=== PATIENT | female | born 1975 | race Caucasian/White ===

== ENCOUNTER → 2021-01-09 10:22 | Outpatient (CLI) | payer OTHER, SELFPAY ==
[2021-01-09] MEDS: COVID-19 VACC #1, MRNA(MOD) 100 MCG/0.5 ML VIAL IM (10:32)
== END ==
PROVIDERS: Visit Provider Internal Medicine
DX: Z23 Encounter for immunization (principal)
CPT/HCPCS: 0011A; 91301

== ENCOUNTER → 2021-02-12 10:32 | Outpatient (CLI) | payer OTHER, SELFPAY ==
[2021-02-12] MEDS: COVID-19 VACC #2, MRNA(MOD) 100 MCG/0.5 ML VIAL IM (10:40)
== END ==
PROVIDERS: Visit Provider Internal Medicine
DX: Z23 Encounter for immunization (principal)
CPT/HCPCS: 0012A; 91301

== ENCOUNTER → 2021-07-02 14:21 | Outpatient (CLI) | payer OTHER, SELFPAY ==
[2021-07-02 16:03] LABS: BUN Creatinine Ratio 15.3 (6-22); Blood Urea Nitrogen 9 mg/dL (7-17); Calcium 9.6 mg/dL (8.4-10.2); Carbon Dioxide 27 mmol/L (22-32); Chloride 103 mmol/L (98-107); Cholesterol 179 mg/dL (140-199); Estimated Glomerular Filt Rate > 60.0 mL/min (>60); Glucose 77 mg/dL (70-100); HDL Cholesterol 57 mg/dL (40-60); HEMOLYSIS 31 (0-50); LDL Cholesterol Calculated 88 mg/dL (<100); Potassium 4.7 mmol/L (3.4-5.1); Sodium 139 mmol/L (137-145); Triglycerides 169 mg/dL (35-150)
[2021-07-02 16:13] LABS: Vitamin D 25 Hydroxy (D3) 88.6 ng/mL (30.0-100.0)
== END ==
PROVIDERS: PCP Student in an Organized Health Care Education/Training Program; Referring Provider Student in an Organized Health Care Education/Training Program; Visit Provider Student in an Organized Health Care Education/Training Program
DX: E11.9 Type 2 diabetes mellitus without complications (principal); E55.9 Vitamin D deficiency, unspecified
CPT/HCPCS: 36415; 80048; 80061; 82306; 83036

== ENCOUNTER 2022-06-17 08:19 | Emergency (ER) | payer OTHER, SELFPAY ==
[2022-06-17 08:37] VITALS: BP 144/96; PULSE 68; RESP 18; TEMP 36.8; O2SAT 100; BMI 34.9
--- NOTE | 2022-06-17 08:38 | DI.US.S_ITS ---
PROCEDURE: US PERIPH VENOUS LOW EXTREM LT INDICATIONS: POSTERIOR KNEE PAIN TECHNIQUE: Real-time imaging, as well as color and pulse Doppler interrogation, were performed of the lower extremity deep veins from the inguinal ligament to the popliteal fossa. COMPARISON: None. FINDINGS: The common femoral, femoral and popliteal veins are normally compressible, and free of intraluminal thrombus. Color and pulse Doppler demonstrate normal phasic intraluminal flow. There is normal augmentation response to distal compression maneuver. IMPRESSION: No evidence of DVT in visualized left lower extremity veins. No abnormality is seen in popliteal fossa. Dictated by: Guido Jones M.D. on 06/17/2022 at 9:08 Approved by: Guido Jones M.D. on 06/17/2022 at 9:09
--- NOTE | 2022-06-17 09:09 | ED.LOWEXIN ---
HPI - Extremity Injury (Lower) General Chief Complaint: Extremity Injury, Lower Stated Complaint: Poss blood clot lt leg- has DVT- ref by Time Seen by Provider: 06/17/22 08:51 Source: patient Mode of arrival: Ambulatory History of Present Illness HPI Narrative: 47-year-old woman with a history of hypertension, type 2 diabetes with recent significant weight loss then ability to decrease and discontinue some of her medications. She has a history of a DVT in the distant past it sounds like it was unprovoked and she was on anticoagulants for a very brief period of time. With her 2 she was on Lovenox simply because of that history of DVT. It does not sound like she has had a coagulation workup. Over the last 10 days she complains of increasing aching pain in her left leg in the distal thigh knee and proximal posterior calf. Last night it was achy and painful enough that she was unable to get sleep. She notes that this is exactly what her DVT felt like previously. She describes no fevers, cough, chills, chest pain, palpitations, dyspnea. She has had no obvious injuries to the left leg and no other explanation for the pain. Related Data Home Medications Medication Instructions Recorded Confirmed aspirin 81 mg tablet,delayed 81 mg PO DAILY 06/02/21 03/25/22 release (Adult Low Dose Aspirin) cholecalciferol (vitamin D3) 25 25 mcg PO DAILY 07/05/21 03/25/22 mcg (1,000 unit) capsule Previous Rx's Medication Instructions Recorded metformin 500 mg tablet 500 mg PO .BIDCC #180 tabs 07/05/21 naltrexone 50 mg tablet 50 mg PO DAILY #90 tabs 01/07/22 metoprolol succinate 50 mg 50 mg PO DAILY #90 tabs 02/03/22 tablet,extended release 24 hr azelastine 0.05 % eye drops 1 drp EYE-BOTH BID #6 mL 03/17/22 azelastine 137 mcg (0.1 %) nasal 1 spray intranasal BID #30 mL 03/17/22 spray aerosol ipratropium bromide 42 mcg (0.06 2 spray intranasal QID #15 mL 03/25/22 %) nasal spray bupropion HCl 150 mg 24 hr tablet, 150 mg PO QAM #90 tabs 06/05/22 extended release oxycodone-acetaminophen 5 mg-325 1 tab PO Q6H PRN pain #14 tabs 06/17/22 mg tablet Allergies Allergy/AdvReac Type Severity Reaction Status Date / Time Sulfa (Sulfonamide Allergy Severe Throat Verified 06/17/22 08:37 Antibiotics) closes lisinopril AdvReac Intermediate Hot ankles Verified 06/17/22 08:37 Review of Systems Review of Systems Narrative: Remainder of complete review of systems is otherwise unremarkable except for that included in the HPI. Patient History Medical History Deep vein thrombosis Foot pain Hypertension Vitamin D deficiency Surgical History Anesthesia Family History Father Hypertension Hyperlipidemia Mental health problem Grandfather Alzheimer's disease Grandmother COVID-19 Grandfather Brain aneurysm Grandmother Cancer Social History Smoking Status: Never smoker Smoking Status: Never smoker Substance Use Type: marijuana Exam Initial Vital Signs Initial Vital Signs: Vital Signs Temperature 98.2 F 06/17/22 08:37 Pulse Rate 68 06/17/22 08:37 Respiratory Rate 18 06/17/22 08:37 Blood Pressure 144/96 H 06/17/22 08:37 Pulse Oximetry 100 06/17/22 08:37 Oxygen Delivery Method 06/17/22 08:37 General: Healthy appearing, in no acute distress. Able to give a complete and coherent history. Well-nourished well-developed HEENT: Moist mucous membranes, normal sclera with reactive pupils, Respiratory: Lungs are clear to auscultation, no wheezing no rales no rhonchi. Full and symmetrical air movement Cardiac: Regular rate and rhythm no murmurs no bruits Abdomen: Soft, nontender, good bowel tones, no flank pain Skin: Warm and dry, no rashes Neurologic: Grossly neurologically intact with no obvious asymmetries or abnormalities Extremities: No trauma, well perfused. Left lower extremity is more swollen than the right to the upper thigh. Knee exam is unremarkable with stable ligaments and normal range of motion. There is some minor tenderness into the upper gastric area. Psych: Cooperative, appropriate insight and affect Course Orders Ordered: ED Orders 06/17/22 08:38 US periph venous low extrem lt Stat Vital Signs Vital signs: Vital Signs - 8 hr 06/17/22 08:37 Temperature 98.2 F Pulse Rate 68 Respiratory Rate 18 Blood Pressure 144/96 H Pulse Oximetry 100 Oxygen Delivery Method Room Air MDM - Extremity Injury (Lower) Imaging Data US LE: Radiologist's Impression: FINDINGS:? The common femoral, femoral and popliteal veins are normally compressible, and free of intraluminal thrombus.? Color and pulse Doppler demonstrate normal phasic intraluminal flow.? There is normal augmentation response to distal compression maneuver. ? ? IMPRESSION:? No evidence of DVT in visualized left lower extremity veins.? No abnormality is seen in popliteal fossa.? ? ? Dictated by: Guido Jones M.D. on 06/17/2022 at 9:08 ? ? [facility] Narrative Medical decision making narrative: 47-year-old woman with a distant history of DVT who presents with 10 days of left lower extremity pain and swelling unprovoked. Ultrasound is negative for recurrent DVT. No obvious trauma is appreciated. Discussed pain medications and follow-up with her primary care physician. There is no evidence of infection or intra-abdominal pathology that would be restricting lymphatic blood flow. Discharge Plan Departure Patient Disposition: Home Clinical Impression: Leg pain, left Instructions: DI for Leg Pain Activity Restrictions/Additional Instructions: Thank you for coming in today You do not have a blood clot in your left like I do not see any other life-threatening abnormalities. I am going to suggest that you were given a bit more time with pain medication to help control the pain. Using 400 mg of ibuprofen (2 bfxh-num-nuarvgt pills) and 1 Tylenol every 6 hours can be very helpful in controlling pain. For severe pain, such is pain that keep you from sleeping at night, using 1 Percocet and 400 mg of ibuprofen can be helpful. If you do end up using Percocet, does have narcotic in it and can make you constipated. Please add a stool softener and extra water on the days that you take this. A prescription for Percocet was electronically transmitted to [facility] in [place] If you find that you are getting worse or develop any new symptoms, please feel free to return to the emergency department for further evaluation. Prescriptions: New oxycodone-acetaminophen 5-325 mg tablet 1 tab PO Q6H PRN (Reason: pain) Qty: 14 0RF No Action aspirin [Adult Low Dose Aspirin] 81 mg tablet,delayed release (DR/EC) 81 mg PO DAILY azelastine 0.05 % drops 1 drp EYE-BOTH BID Qty: 6 0RF azelastine 137 mcg (0.1 %) aerosol,spray 1 spray intranasal BID Qty: 30 0RF Rx Instructions: administer into each nostril cholecalciferol (vitamin D3) 25 mcg (1,000 unit) capsule 25 mcg PO DAILY metformin 500 mg tablet 500 mg PO .BIDCC Qty: 180 3RF naltrexone 50 mg tablet 50 mg PO DAILY Qty: 90 1RF metoprolol succinate 50 mg tablet extended release 24 hr 50 mg PO DAILY Qty: 90 1RF bupropion HCl 150 mg tablet extended release 24 hr 150 mg PO QAM Qty: 90 0RF ipratropium bromide 42 mcg (0.06 %) spray,non-aerosol 2 spray intranasal QID Qty: 15 0RF Rx Instructions: administer into each nostril Referrals: Herrera Chun MD [Primary Care Provider] -
== END 2022-06-17 11:16 | disposition home or self-care (01) ==
PROVIDERS: Emergency Provider Emergency Medicine; PCP Student in an Organized Health Care Education/Training Program
DX: M79.605 Pain in left leg (principal); Z79.01 Long term (current) use of anticoagulants
CPT/HCPCS: 93971; 99281; 99283

== ENCOUNTER → 2022-08-19 10:21 | Outpatient (CLI) | payer OTHER, SELFPAY ==
--- NOTE | 2022-08-19 10:34 | DI.RAD.S_ITS ---
PROCEDURE: XR KNEE LT 3V INDICATIONS: Left knee pain, medial TECHNIQUE: 3 views of the knee were acquired. COMPARISON: None. FINDINGS: Bones: No displaced fracture or dislocation. Soft tissues: Possible small joint effusion. IMPRESSION: No acute radiographic abnormality. If there is high concern for further derangement, consider MRI evaluation. Dictated by: Fredy Diaz M.D. on 08/19/2022 at 11:27 Approved by: Fredy Diaz M.D. on 08/19/2022 at 11:27
[2022-08-19 11:38] LABS: Hemoglobin A1C% w Est Avg Glu 5.5 % (4.0-6.0)
[2022-08-19 11:56] LABS: Creatinine Urine Random 78.4 mg/dL
[2022-08-19 11:59] LABS: Microalbumin Urine Random < 0.6 mg/dL (0-1.6)
[2022-08-19 12:02] LABS: BUN Creatinine Ratio 16.1 (6-22); Blood Urea Nitrogen 10 mg/dL (7-17); Calcium 9.7 mg/dL (8.4-10.2); Carbon Dioxide 21 mmol/L (22-32); Chloride 106 mmol/L (98-107); Cholesterol 217 mg/dL (140-199); Estimated Glomerular Filt Rate > 60 mL/min (>60); Glucose 91 mg/dL (70-100); HDL Cholesterol 62 mg/dL (40-60); HEMOLYSIS < 15 (0-50); LDL Cholesterol Calculated 124 mg/dL (<100); Potassium 4.3 mmol/L (3.4-5.1); Sodium 139 mmol/L (137-145); Triglycerides 157 mg/dL (35-150)
== END ==
PROVIDERS: PCP Student in an Organized Health Care Education/Training Program; Referring Provider Student in an Organized Health Care Education/Training Program; Visit Provider Student in an Organized Health Care Education/Training Program
DX: M25.562 Pain in left knee (principal); E11.9 Type 2 diabetes mellitus without complications; I10 Essential (primary) hypertension
CPT/HCPCS: 36415; 73562; 80048; 80061; 82043; 82570; 83036

== ENCOUNTER → 2023-04-02 14:24 | Outpatient (CLI) | payer OTHER, SELFPAY ==
--- NOTE | 2023-04-02 | DI.MG.S_ITS ---
BILATERAL DIGITAL SCREENING MAMMOGRAM 3D/2D WITH CAD WITH AUGMENTATION: 04/02/2023 CLINICAL: Baseline by default. Patient presents for routine screening. S/P bilateral augmentation. Family history of breast cancer. No prior exams were available for comparison. Both breasts are heterogeneously dense, which may obscure small masses (category c / 51-75% glandular tissue). Current study was also evaluated with a Computer Aided Detection (CAD) system. There is a focal asymmetry in the left breast at 6 o'clock middle depth. No other significant masses, calcifications, or other findings are seen in either breast. IMPRESSION: INCOMPLETE: NEEDS ADDITIONAL IMAGING EVALUATION The focal asymmetry in the left breast is indeterminate. Additional views with possible ultrasound are recommended. Based on the Tyrer Cuzick model (a risk assessment model) the patient's lifetime risk is 10.8% and her 10 year risk is 2.2%. According to the ACR, ACS, and NCCN guidelines, an annual breast MRI exam along with mammogram is recommended if the patient's lifetime risk is 20% or greater. This exam was interpreted at Station ID: [id number]. NOTE: For mammograms, a report in lay terms will be sent to the patient. Approximately 15% of breast malignancies will not be visualized mammographically. In the management of a palpable breast mass, a negative mammogram must not discourage biopsy of a clinically suspicious lesion. Electronically Signed By: Fredy Diaz M.D. /:04/02/2023 16:30:06 letter sent: Additional Imaging Needed ACR BI-RADS Category 0: Incomplete 3340F
== END ==
PROVIDERS: PCP Student in an Organized Health Care Education/Training Program; Referring Provider Student in an Organized Health Care Education/Training Program; Visit Provider Student in an Organized Health Care Education/Training Program
DX: Z12.31 Encounter for screening mammogram for malignant neoplasm of breast (principal); Z80.3 Family history of malignant neoplasm of breast
CPT/HCPCS: 77063; 77067

== ENCOUNTER → 2023-04-12 10:17 | Outpatient (CLI) | payer OTHER, SELFPAY ==
--- NOTE | 2023-04-12 | DI.MG.S_ITS ---
UNILATERAL LEFT DIGITAL DIAGNOSTIC MAMMOGRAM 3D/2D WITH ADDITIONAL VIEWS WITH AUGMENTATION: 04/12/2023 CLINICAL: Additional evaluation requested from prior study. Comparison is made to exam dated: 04/02/2023 mammogram - [facility]. The left breast is heterogeneously dense, which may obscure small masses (category c / 51-75% glandular tissue). There is a focal asymmetry in the left breast at 6 o'clock middle depth. This is seen in additional views. No other significant masses or calcifications are seen in the breast. IMPRESSION: INCOMPLETE: NEEDS ADDITIONAL IMAGING EVALUATION The focal asymmetry in the left breast is indeterminate. An ultrasound is recommended. No correlate on mammogram to lateral region diffuse left breast pain, clinical correlation recommended. Based on the Tyrer Cuzick model (a risk assessment model) the patient's lifetime risk is 11.8% and her 10 year risk is 2.5%. According to the ACR, ACS, and NCCN guidelines, an annual breast MRI exam along with mammogram is recommended if the patient's lifetime risk is 20% or greater. This exam was interpreted at Station ID: [id number]. NOTE: For mammograms, a report in lay terms will be sent to the patient. Approximately 15% of breast malignancies will not be visualized mammographically. In the management of a palpable breast mass, a negative mammogram must not discourage biopsy of a clinically suspicious lesion. Electronically Signed By: Fredy Diaz M.D. /:04/12/2023 11:45:42 ACR BI-RADS Category 0: Incomplete 3340F
--- NOTE | 2023-04-12 10:18 | DI.US.S_ITS ---
PROCEDURE: US BREAST LT LIMITED COMPARISON: None. INDICATIONS: follow up focal asymmetry L breast FINDINGS: IMPRESSION: Dictated by: Fredy Diaz M.D. on 04/12/2023 at 11:46 Approved by: Fredy Diaz M.D. on 04/12/2023 at 11:47
--- NOTE | 2023-04-12 11:01 | DI.US.S_ITS ---
Patient Name: SHANIA GALAN date: 1975 Sex: F Attending Physician: Maycol Indications: Date: 04/12/2023 11:47 At the request of: ABDIRAHMAN LONDON Procedure: US breast LT limited ULTRASOUND OF LEFT BREAST AND AXILLA: 04/12/2023 CLINICAL: Patient returns today to evaluate a focal asymmetry in the left breast. Comparison is made to exams dated: 04/12/2023 mammogram and 04/02/2023 mammogram - [facility]. Real-time ultrasound of the left breast axilla was performed. [place] scale images of the real-time examination were reviewed. There is a 1 cm x 0.6 cm x 0.6 cm irregular mass with an angular margin in the left breast at 7 o'clock middle depth 4 cm from the nipple. No significant abnormalities were seen sonographically in the left axilla. IMPRESSION: SUSPICIOUS OF MALIGNANCY The 1 cm x 0.6 cm x 0.6 cm irregular mass in the left breast is suspicious of malignancy. An ultrasound guided biopsy is recommended. No significant abnormalities were seen sonographically in the left axilla. This exam was interpreted at Station ID: [id number]. Electronically Signed By: Fredy Diaz M.D. lc/:04/12/2023 11:47:35 letter sent: Biopsy Required Ultrasound BI-RADS: 4 Suspicious for malignancy
== END ==
PROVIDERS: PCP Pediatrics; Referring Provider Pediatrics; Visit Provider Pediatrics
DX: N63.24 Unspecified lump in the left breast, lower inner quadrant (principal); R92.8 Other abnormal and inconclusive findings on diagnostic imaging of breast
CPT/HCPCS: 76642; 77065; G0279

== ENCOUNTER → 2023-04-16 10:49 | Outpatient (CLI) | payer OTHER, SELFPAY ==
--- NOTE | 2023-04-16 | DI.MG.S_ITS ---
UNILATERAL LEFT DIGITAL DIAGNOSTIC MAMMOGRAM 3D/2D: 04/16/2023 CLINICAL: Left post clip. Comparison is made to exams dated: 04/16/2023 ultrasound biopsy, 04/12/2023 ultrasound, 04/12/2023 mammogram, and 04/02/2023 mammogram - [facility]. The left breast is heterogeneously dense, which may obscure small masses (category c / 51-75% glandular tissue). There is a marker clip in the appropriate position in the left breast at 7 o'clock in the retroareolar region. IMPRESSION: POST PROCEDURE MAMMOGRAM FOR MARKER PLACEMENT There was a successful marker clip placement in the left breast in the retroareolar region. Based on the Tyrer Cuzick model (a risk assessment model) the patient's lifetime risk is 11.8% and her 10 year risk is 2.5%. According to the ACR, ACS, and NCCN guidelines, an annual breast MRI exam along with mammogram is recommended if the patient's lifetime risk is 20% or greater. This exam was interpreted at Station ID: [id number]. NOTE: For mammograms, a report in lay terms will be sent to the patient. Approximately 15% of breast malignancies will not be visualized mammographically. In the management of a palpable breast mass, a negative mammogram must not discourage biopsy of a clinically suspicious lesion. Electronically Signed By: Zackery newman/tequila:04/16/2023 14:42:30 ACR BI-RADS Category Post-procedure mammogram for marker placement
--- NOTE | 2023-04-16 | PATH_ITS ---
[facility] Accession Number: [id number] No. of containers..01 Tissue . 01 Material submitted: . breast - LEFT BREAST MASS 7:00 4 CM FN . 01 Diagnosis: A. Left Breast Mass, 7 o'clock, 4 cm from the Nipple, Biopsy: Fibroadenoma, in association with focal usual ductal hyperplasia and few microcalcifications. Negative for atypia, carcinoma in situ, and malignancy. . COMMENT: Clinical and radiographic correlation is necessary. MRV 04/30/2023 1303 Local . 01 Electronically signed: . Gricelda Lacey MD, Pathologist NPI- [id number] . 01 Gross description: . The specimen is received in formalin labeled with the patient's name, , and bx breast, and consists of multiple yellow to corona soft tissue fragments aggregating to 1.8 x 0.6 x 0.2 cm. The specimen is inked green, filtered, and submitted entirely in cassette A1. The specimen is submitted on 04/16/2023 at 11:31, time in formalin not provided, cold ischemic time cannot be calculated, total fixation time is approximately 51 hours. ([id number]) /Meet 04/17/2023 1839 Local . 01 Microscopic: . CK5/6 and ER immunostains are performed on block A1 in order to evaluate the focal areas of mild intraductal proliferation for neoplasia, with appropriately staining external controls. The immunoprofile supports usual ductal hyperplasia without evidence of neoplasia, and the results are as follows: . ER: Mosaic pattern, no diffuse immunoreactivity. CK5/6: Mosaic pattern, no significant loss. . Deeper levels are also examined. . * This test was developed and its performance characteristics determined by [facility]. It has not been cleared or approved by the U.S. Food and Drug Administration. The FDA has determined that such clearance or approval is not necessary. This test is used for clinical purposes. It should not be regarded as investigational or for research. . 01 Pathologist provided ICD-10: D24.2 . 01 CPT . 895284, C82485, C55828 Specimen Comment: A courtesy copy of this report has been sent to [facility] Performed at: 01 [facility] [address] [place] [address], [place], [place] [id number] MD Jhoan Sutton MD Phone: [phone]
--- NOTE | 2023-04-16 10:49 | DI.US.S_ITS ---
ULTRASOUND GUIDED BIOPSY LEFT BREAST USING VACUUM DEVICE WITH MARKING DEVICE INSERTED AND POST DIGITAL MAMMOGRAPHIC AND ULTRASOUND IMAGIN04/16/2023 CLINICAL: Left breast mass. PATIENT CONSENT: Risks (minor bleeding, infection, vasovagal reaction and repeat procedure), benefits and alternatives were explained to the patient and written informed consent was obtained. Correlation is made to exams dated: 04/12/2023 ultrasound, 04/12/2023 mammogram, and 04/02/2023 mammogram - [facility]. An ultrasound guided biopsy using real-time ultrasound was performed for the 1 cm x 0.6 cm x 0.6 cm mass located in the left breast at 7 o'clock middle depth 4 cm from the nipple. This was described on the previous mammography and ultrasound reports. The skin was prepped in the usual manner. Local anesthetic was administered to the access site. A skin cayden was made in the breast. The abnormality was approached from the lateral aspect. A 13 gauge biopsy needle was placed adjacent to the abnormality under ultrasound guidance. Once the needle was documented to be in the correct location, four specimens were obtained using the Mammotome biopsy system. A clip was inserted into the biopsy cavity. A sterile dressing was applied to the access site. Post procedure digital mammographic and ultrasound imaging demonstrates the location device at the targeted area. The specimens were sent to the laboratory for pathological analysis. IMPRESSION: ULTRASOUND GUIDED BIOPSY BENIGN Ultrasound guided biopsy of the 1 cm x 0.6 cm x 0.6 cm mass in the left breast at 7 o'clock middle depth 4 cm from the nipple was successful with no apparent post procedure complications. Pathology indicates benign fibroadenoma (FA). Pathology results are concordant with imaging findings. Return to annual mammogram screening schedule is recommended. This exam was interpreted at Station ID: [id number]. Zackery newman,acr/:05/03/2023 16:15:41
== END ==
PROVIDERS: PCP Pediatrics; Referring Provider Pediatrics; Visit Provider Pediatrics
DX: D24.2 Benign neoplasm of left breast (principal); N62 Hypertrophy of breast
CPT/HCPCS: 19083; 77065

== ENCOUNTER → 2023-07-29 08:37 | Outpatient (CLI) | payer OTHER, SELFPAY ==
--- NOTE | 2023-07-29 | DI.MG.S_ITS ---
UNILATERAL LEFT DIGITAL DIAGNOSTIC MAMMOGRAM 3D/2D WITH AUGMENTATION: 07/29/2023 CLINICAL: Left breast pain, post Biopsy. Comparison is made to exams dated: 04/16/2023 mammogram, 04/12/2023 mammogram, and 04/02/2023 mammogram - [facility]. The left breast is heterogeneously dense, which may obscure small masses (category c / 51-75% glandular tissue). No significant masses, calcifications, or other findings are seen in the breast. Specifically, no mammographic finding in the area of the patient's pain. A biopsy clip is in the retroareaolar region, not corresponding to the location of pain. IMPRESSION: INCOMPLETE: NEEDS ADDITIONAL IMAGING EVALUATION There is no abnormality seen in the left breast to correspond with the pain at 8 o'clock. Ultrasound is recommended for full evaluation of this area. This was performed immediately following this exam. Based on the Tyrer Cuzick model (a risk assessment model) the patient's lifetime risk is 11.8% and her 10 year risk is 2.5%. According to the ACR, ACS, and NCCN guidelines, an annual breast MRI exam along with mammogram is recommended if the patient's lifetime risk is 20% or greater. This exam was interpreted at Station ID: [id number]. NOTE: For mammograms, a report in lay terms will be sent to the patient. Approximately 15% of breast malignancies will not be visualized mammographically. In the management of a palpable breast mass, a negative mammogram must not discourage biopsy of a clinically suspicious lesion. Electronically Signed By: Aleja mae/:07/29/2023 09:36:15 ACR BI-RADS Category 0: Incomplete 3340F
--- NOTE | 2023-07-29 08:38 | DI.US.S_ITS ---
LIMITED ULTRASOUND OF LEFT BREAST: 07/29/2023 CLINICAL: Focal left breast pain at prior biopsy site. Comparison is made to exams dated: 04/12/2023 ultrasound, 04/16/2023 ultrasound biopsy, 04/16/2023 mammogram, and 07/29/2023 mammogram - [facility]. Ultrasound of the left breast 7 o'clock region was performed. [place] scale images of the real-time examination were reviewed. No significant abnormalities were seen sonographically in the left breast. Specifically, no finding to explain the patient's pain at 7:00 5 cm from the nipple. Biopsy clip is at 7:00 2 cm from the nipple. No surrounding duct abnormalities or suspicious findings. IMPRESSION: NEGATIVE There is no sonographic correlate to the patient's pain and no evidence of malignancy. Return to annual mammogram screening schedule is recommended. Future imaging is recommended as follows: 04/03/2024 screening mammogram. Findings and recommendations were conveyed to the patient at time of exam. This exam was interpreted at Station ID: [id number]. Electronically Signed By: Aleja mae/:07/29/2023 10:03:42 letter sent: Normal Exam Ultrasound BI-RADS: 1 Negative
== END ==
PROVIDERS: PCP Family Medicine; Referring Provider Family Medicine; Visit Provider Family Medicine
DX: N64.4 Mastodynia (principal); R92.2 Inconclusive mammogram
CPT/HCPCS: 76642; 77065; G0279

== ENCOUNTER → 2023-12-15 11:51 | Outpatient (CLI) | payer OTHER, SELFPAY ==
--- NOTE | 2023-12-15 11:52 | DI.RAD.S_ITS ---
PROCEDURE: XR KNEE LT 3V INDICATIONS: fall 3 days ago, pain medial knee/tibial plateau TECHNIQUE: 3 views of the knee were acquired. COMPARISON: [facility], , XR KNEE LT 3V, 08/19/2022, 10:33. FINDINGS: Bones: No fractures or dislocations. No suspicious bony lesions. Soft tissues: No joint effusion. No suspicious soft tissue calcifications. IMPRESSION: No acute bony abnormality or significant effusion. If clinical symptoms persist or clinical suspicion for pathology is high, a repeat examination in 7-10 days, or advanced imaging such as CT or MRI is suggested for further evaluation. Dictated by: Ernestine Jain M.D. on 12/16/2023 at 9:23 Approved by: Ernestine Jain M.D. on 12/16/2023 at 9:24
== END ==
LOC: RAD 11:52
PROVIDERS: PCP Family Medicine; Referring Provider Physician Assistant; Visit Provider Physician Assistant
DX: M25.562 Pain in left knee (principal)
CPT/HCPCS: 73562

== ENCOUNTER → 2024-06-06 15:16 | Outpatient (CLI) | payer OTHER, SELFPAY ==
--- NOTE | 2024-06-06 15:17 | DI.MG.S_ITS ---
BILATERAL DIGITAL SCREENING MAMMOGRAM 3D/2D WITH CAD WITH AUGMENTATION: 06/06/2024 CLINICAL: Routine screening. Family history of breast cancer. Comparison is made to exams dated: 04/12/2023 mammogram and 04/02/2023 mammogram - [facility]. The breasts are heterogeneously dense, which may obscure small masses (category c / 51-75% glandular tissue). Current study was also evaluated with a Computer Aided Detection (CAD) system. There are benign calcifications in the right breast. There also is a biopsy clip in the left breast. No significant masses, calcifications, or other findings are seen in either breast. There has been no significant interval change. IMPRESSION: BENIGN There is no mammographic evidence of malignancy. A 1 year screening mammogram is recommended. Based on the Tyrer Cuzick model (a risk assessment model) the patient's lifetime risk is 11.8% and her 10 year risk is 2.6%. According to the ACR, ACS, and NCCN guidelines, an annual breast MRI exam along with mammogram is recommended if the patient's lifetime risk is 20% or greater. This exam was interpreted at Station ID: [id number]. NOTE: For mammograms, a report in lay terms will be sent to the patient. Approximately 15% of breast malignancies will not be visualized mammographically. In the management of a palpable breast mass, a negative mammogram must not discourage biopsy of a clinically suspicious lesion. Electronically Signed By: Aleja [email or web address]:06/08/2024 08:58:38 letter sent: Normal Exam ACR BI-RADS Category 2: Benign 3342F
== END ==
PROVIDERS: PCP Family Medicine; Referring Provider Family Medicine; Visit Provider Family Medicine
DX: Z12.31 Encounter for screening mammogram for malignant neoplasm of breast (principal); Z80.3 Family history of malignant neoplasm of breast; R92.333 Mammographic heterogeneous density, bilateral breasts
CPT/HCPCS: 77063; 77067

== ENCOUNTER → 2024-09-27 12:03 | Outpatient (CLI) | payer OTHER, SELFPAY ==
[2024-09-27 12:36] LABS: Hemoglobin A1C% w Est Avg Glu 4.8 % (4.0-6.0)
[2024-09-27 12:52] LABS: Alanine Aminotransferase 19 IU/L (<35); Albumin 4.5 g/dL (3.5-5.0); Albumin Globulin Ratio 1.6 (1.0-2.8); Alkaline Phosphatase 75 U/L (38-126); Aspartate Aminotransferase 24 IU/L (14-36); BUN Creatinine Ratio 12.8 (6-22); Bilirubin Total 0.5 mg/dL (0.2-1.3); Blood Urea Nitrogen 10 mg/dL (7-17); Calcium 9.5 mg/dL (8.4-10.2); Carbon Dioxide 26 mmol/L (22-32); Chloride 104 mmol/L (98-107); Estimated Glomerular Filt Rate > 60 mL/min (>60); Globulin 2.8 g/dL (1.7-4.1); Glucose 63 mg/dL (70-100); HEMOLYSIS < 15 (0-50); Potassium 3.8 mmol/L (3.4-5.1); Sodium 139 mmol/L (137-145); Total Protein 7.3 g/dL (6.3-8.2)
[2024-09-27 13:23] LABS: TSH w/ Reflex to FT4 1.47 uIU/mL (0.47-4.68)
== END ==
PROVIDERS: PCP Family Medicine; Referring Provider Family Medicine; Visit Provider Family Medicine
DX: B35.1 Tinea unguium (principal); N95.1 Menopausal and female climacteric states; F33.1 Major depressive disorder, recurrent, moderate; Z79.890 Hormone replacement therapy; E66.01 Morbid (severe) obesity due to excess calories
CPT/HCPCS: 36415; 80053; 83036; 84443

== ENCOUNTER → 2025-01-12 09:52 | Outpatient (CLI) | payer OTHER, SELFPAY | PROVIDERS: PCP Family Medicine; Visit Provider Nurse Practitioner Family | DX: T14.8XXA Other injury of unspecified body region, initial encounter (principal) | CPT/HCPCS: 87070; 87077; 87186; 87205 ==

== ENCOUNTER → 2025-01-16 15:53 | Outpatient (CLI) | payer OTHER, SELFPAY ==
--- NOTE | 2025-01-16 15:55 | DI.RAD.S_ITS ---
PROCEDURE: XR TOE RT MIN 2V INDICATIONS: Wound x 1 year tip of toe; concern for osteomyelitis TECHNIQUE: 2 views of the 1st toe(s) acquired. COMPARISON: None. FINDINGS: Bones: No fractures or dislocations. Ill-defined lucency the tuft of the distal 1st phalanx. Soft tissues: No suspicious soft tissue densities. 1st digit soft tissue prominence. IMPRESSION: Ill-defined distal 1st tuft lucency. Cannot exclude developing osteomyelitis. Dictated by: Clarisse King M.D. on 01/16/2025 at 20:31 Approved by: Clarisse King M.D. on 01/16/2025 at 20:32
== END ==
PROVIDERS: PCP Family Medicine; Referring Provider Physician Assistant; Visit Provider Physician Assistant
DX: T14.8XXA Other injury of unspecified body region, initial encounter (principal); L08.9 Local infection of the skin and subcutaneous tissue, unspecified
CPT/HCPCS: 73660

== ENCOUNTER → 2025-01-25 13:48 | Outpatient (CLI) | payer OTHER, SELFPAY | LOC: WC 13:50 | PROVIDERS: PCP Family Medicine; Referring Provider Physician Assistant; Visit Provider Surgery | DX: E11.621 Type 2 diabetes mellitus with foot ulcer (principal); E11.42 Type 2 diabetes mellitus with diabetic polyneuropathy; L97.512 Non-pressure chronic ulcer of other part of right foot with fat layer exposed; L84 Corns and callosities; L53.9 Erythematous condition, unspecified; Z86.718 Personal history of other venous thrombosis and embolism | CPT/HCPCS: 11042; 87070; 87205; 99203; 99214 ==

== ENCOUNTER → 2025-02-01 15:03 | Outpatient (CLI) | payer OTHER, SELFPAY | LOC: WC 15:05 | PROVIDERS: PCP Family Medicine; Referring Provider Family Medicine; Visit Provider Surgery | DX: E11.621 Type 2 diabetes mellitus with foot ulcer (principal); E11.42 Type 2 diabetes mellitus with diabetic polyneuropathy; L97.512 Non-pressure chronic ulcer of other part of right foot with fat layer exposed; L84 Corns and callosities | CPT/HCPCS: 11042 ==

== ENCOUNTER → 2025-02-07 08:55 | Outpatient (CLI) | payer OTHER, SELFPAY | PROVIDERS: PCP Family Medicine; Referring Provider Family Medicine; Visit Provider Surgery | DX: Z86.31 Personal history of diabetic foot ulcer (principal) | CPT/HCPCS: 99213 ==